=== PATIENT | male | born 1990 | race Caucasian/White ===

== ENCOUNTER → 2021-10-20 | Outpatient (CLI) | payer BC | LOC: RAD 16:40 | DX: M25.511 Pain in right shoulder (principal) | CPT/HCPCS: 73030 ==

== ENCOUNTER → 2021-11-04 | Outpatient (CLI) | payer BC | LOC: KOH-I 10-28 15:00 | DX: M25.511 Pain in right shoulder (principal) | CPT/HCPCS: 73221 ==